=== PATIENT | male | born 1995 | race Caucasian/White ===

== ENCOUNTER 2025-01-06 12:53 | Emergency (ER) | payer MEDICAID, OTHER ==
[2025-01-06 13:50] VITALS: BP 141/92
[2025-01-06 13:53] VITALS: PULSE 74
[2025-01-06] MEDS: Diphtheria,Pertussis(Acell),Tetanus Vaccine 0.5 ML Syringe IM ONE (14:03)
[2025-01-06] MEDS: Lidocaine 1% with EPINEPHrine 1:100,000 20 ML MDV INJECT ONE (14:04)
== END 2025-01-06 14:19 ==
LOC: JP.ED 12:53
DX: S01.511A Laceration without foreign body of lip, initial encounter (principal); Z23 Encounter for immunization; Z91.030 Bee allergy status; F17.200 Nicotine dependence, unspecified, uncomplicated; W19.XXXA Unspecified fall, initial encounter
CPT/HCPCS: 12011; 90471; 90715; 99283; J2004

== ENCOUNTER 2025-02-17 10:36 | Day surgery (SDC) | payer MEDICAID ==
[2025-02-17] MEDS ORDERED: Sodium Chloride 0.9% 10 ML Syringe FLUSH PRN (11:23)
[2025-02-17 11:40] LABS: BASOPHILS ABSOLUTE AUTO 0.06 K/uL (0.00-0.10); BASOPHILS PERCENT AUTO 0.4 % (0.1-1.3); EOSINOPHILS ABSOLUTE AUTO 0.10 K/uL (0.00-0.40); EOSINOPHILS PERCENT AUTO 0.7 % (0.0-5.4); IMMATURE GRAN ABSOLUTE AUTO 0.06 K/uL (0.00-0.23); IMMATURE GRAN PERCENT AUTO 0.4 % (0.0-0.7); LYMPHOCYTES ABSOLUTE AUTO 1.34 K/uL (0.8-3.3); LYMPHOCYTES PERCENT AUTO 9.7 % (11.4-47.7); MONOCYTES ABSOLUTE AUTO 1.35 K/uL (0.20-0.90); MONOCYTES PERCENT AUTO 9.8 % (3.3-12.6); NEUTROPHILS ABSOLUTE AUTO 10.88 K/uL (1.0-7.6); NEUTROPHILS PERCENT AUTO 79.0 % (40.0-78.1); PLATELET COUNT,PLT 275 K/uL (130-375); RED BLOOD CELL COUNT 4.88 M/uL (4.14-5.76); WHITE BLOOD CELL COUNT,WBC 13.8 K/uL (3.2-11.0)
[2025-02-17 11:58] LABS: BLOOD UREA NITROGEN,BUN 10.0 mg/dL (7-18); CARBON DIOXIDE,CO2 28.0 mmol/L (21-32); CHLORIDE,CL 100.0 mmol/L (100-108); CREATININE 0.9 mg/dL (0.8-1.3); EST CRCL DRUG DOSING (CG) 111.19 mL/min; ESTIMATED GFR 117.0 mL/min (>60); GLUCOSE RANDOM 112.0 mg/dL (74-106); POTASSIUM,K 4.1 mmol/L (3.6-5.2); SODIUM,NA 137.0 mmol/L (140-148)
[2025-02-17] MEDS: Iopamidol 612 MG/ML 100 ML Bottle IV ONE (12:02)
[2025-02-17 12:06] LABS: LACTIC ACID 1.2 mmol/L (0.4-2.0)
[2025-02-17] MEDS ORDERED: Glycopyrrolate 0.2 MG/ML 5 ML MDV ONE (14:03)
[2025-02-17] MEDS ORDERED: Ondansetron 4 MG/2 ML SDV ONE (14:03)
[2025-02-17] MEDS ORDERED: Dexamethasone 4 MG/ML SDV ONE (14:03)
[2025-02-17] MEDS ORDERED: fentaNYL 250 MCG/5 ML SDV ONE (14:03)
[2025-02-17] MEDS ORDERED: Succinylcholine 200 MG/10 ML MDV ONE (14:03)
[2025-02-17] MEDS ORDERED: Propofol 200 MG/20 ML SDV ONE (14:03)
[2025-02-17] MEDS: metroNIDAZOLE/Normal Saline 500 MG in Premix Bag 1 BAG IV ONE (14:43)
[2025-02-17] MEDS ORDERED: fentaNYL 100 MCG/2 ML SDV ONE (14:45)
[2025-02-17] MEDS: Bupivacaine 0.5%/EPINEPHrine 1:200,000 50 ML MDV ONE (14:45)
[2025-02-17 16:10] VITALS: BP 116/90; PULSE 99
== END 2025-02-17 16:14 | disposition home or self-care (01) ==
LOC: JP.ED 10:36 → JP.SDS 14:00
PROVIDERS: ATTEND Surgery
DX: L05.01 Pilonidal cyst with abscess (principal); K61.1 Rectal abscess; D72.829 Elevated white blood cell count, unspecified; F17.210 Nicotine dependence, cigarettes, uncomplicated; Z91.030 Bee allergy status; Z79.899 Other long term (current) drug therapy
CPT/HCPCS: 00902; 10080; 36415; 74177; 80048; 83605; 85025; 86140; 87070; 87075; 87205; J0330; J0696; J1100; J1836; J2405; J2704; J3010; J3490; Q9967; 87077; 87186; J1596; J2710

== ENCOUNTER 2025-03-07 02:36 | Emergency (ER) | payer MEDICAID ==
[2025-03-07 03:10] VITALS: BP 132/85; PULSE 100
== END 2025-03-07 03:00 ==
LOC: JP.ED 02:36
DX: Z48.01 Encounter for change or removal of surgical wound dressing (principal); Z91.030 Bee allergy status; Z79.899 Other long term (current) drug therapy
CPT/HCPCS: 99283

== ENCOUNTER 2025-06-04 09:43 | Emergency (ER) | payer MEDICAID ==
[2025-06-04] MEDS ORDERED: Iopamidol 755 Mg/ML 100 ML Bottle IV SCH (10:30)
[2025-06-04] MEDS: Sodium Chloride 0.9% 10 ML Syringe FLUSH PRN (10:41)
== END 2025-06-04 14:00 | disposition home or self-care (01) ==
LOC: JP.ED 09:43
DX: S02.652A Fracture of angle of left mandible, initial encounter for closed fracture (principal); S02.601A Fracture of unspecified part of body of right mandible, initial encounter for closed fracture; Z91.030 Bee allergy status; W22.8XXA Striking against or struck by other objects, initial encounter; Y93.89 Activity, other specified
CPT/HCPCS: 70450; 70486; 70498; 99284; A9270